=== PATIENT | male | born 1990 | race Hispanic/Latino ===

== ENCOUNTER 2021-10-19 07:47 | Emergency (ER) | payer BC, OTHER ==
[~2021-10-19] VITALS: Ht 165.1 cm; Wt 80.3 kg
[~2021-10-19 07:47] MED LIST: AMOX1TAB16 PO
[2021-10-19 09:11] LABS: APPEARANCE,URINE Clear (CLEAR); BILIRUBIN,URINE Negative (NEGATIVE); COLOR,URINE Yellow (YELLOW); GLUCOSE, URINE (UA) Negative (NEGATIVE); KETONES,URINE Negative (NEGATIVE); LEUKOCYTE ESTERASE ,URINE Negative (NEGATIVE); NITRATE,URINE Negative (NEGATIVE); OCCULT BLOOD,URINE Negative (NEGATIVE); PH,URINE 5.5 (5.0-8.0); PROTEIN,URINE Trace mg/dL (NEGATIVE); UROBILINOGEN,URINE 0.2 mg/dL (0.2-1.0)
[2021-10-19 09:35] LABS: BACTERIA,URINE Rare /HPF (None Seen); CALCIUM OXALATE CRYSTALS,UR Moderate /LPF (None Seen); RBC,URINE 0-1 /HPF (0-1); SQUAMOUS EPITHELIAL CELL,UR Rare /HPF (0-2); WBC,URINE 0-1 /HPF (0-1)
[2021-10-19] MEDS ORDERED: IBUP-2070 PO (09:50)
[2021-10-19 09:53] VITALS: BP 126/87
[2021-10-19] MEDS ORDERED: IBUPROFEN 800 MG TAB PO SCH (10:00)
== END 2021-10-19 10:13 | disposition home or self-care (01) ==
LOC: EDH 07:47
DX: S30.1XXA Contusion of abdominal wall, initial encounter (principal); S60.221A Contusion of right hand, initial encounter; S80.212A Abrasion, left knee, initial encounter; S80.211A Abrasion, right knee, initial encounter; F17.200 Nicotine dependence, unspecified, uncomplicated; Y08.89XA Assault by other specified means, initial encounter; Y93.89 Activity, other specified; Y92.89 Other specified places as the place of occurrence of the external cause; Y99.0 Civilian activity done for income or pay
CPT/HCPCS: 71100; 81001